=== PATIENT | male | born 1990 | race Two or more races ===

== ENCOUNTER 2020-12-07 11:53 | Emergency (ER) | payer OTHER ==
[~2020-12-07] VITALS: Ht 170.2 cm; Wt 88.2 kg
--- NOTE | 2020-12-07 12:26 | NUR ---
PT STATES HIS CP STARTED YESTERDAY. MAX PAIN 12/25. PAIN WORSENS WHEN LEFT CHEAST IS TOUCHED. PT STATES A URGENT SENT HIM HERE.
[2020-12-07 12:58] LABS: BASOPHILS % (AUTO) 0 % (0-1); EOSINOPHILS % (AUTO) 0 % (1-7); LYMPHOCYTES % (AUTO) 20 % (22-44); MEAN CORPUSCULAR HGB CONC 34.5 g/dL (33.2-36.2); MONOCYTES % (AUTO) 6 % (2-9); NEUTROPHILS % (AUTO) 74 % (42-75); PLATELET COUNT 267 x10^3/uL (130-400); RED BLOOD COUNT 4.85 x10^6/uL (4.38-5.82); RED CELL DISTRIBUTION WIDTH 12.9 % (9.4-14.8)
[2020-12-07 12:59] LABS: MD NO
[2020-12-07 13:08] LABS: ALBUMIN 4.8 g/dL (3.4-5.0); ANION GAP 8 mmol/L (5-15); CALCIUM 9.2 mg/dL (8.5-10.1); CHLORIDE 110 mmol/L (98-107)
[2020-12-07 13:13] VITALS: BP 131/98
--- NOTE | 2020-12-07 13:13 | NUR ---
PT IN BED. TELE SR, VSS
[2020-12-07 13:14] LABS: ALANINE AMINOTRANSFERASE 43 U/L (12-78); ALKALINE PHOSPHATASE 56 U/L (45-117); BILIRUBIN,TOTAL 0.7 mg/dL (0.2-1.0); CREATININE 1.09 mg/dL (0.7-1.3); TROPONIN I < 0.015 ng/mL (0.000-0.045)
[2020-12-07] MEDS ORDERED: KETOROLAC 30 MG/1 ML IM ONE (14:00)
== END 2020-12-07 13:28 ==
LOC: ED 13:27
DX: R07.89 Other chest pain (principal); R42 Dizziness and giddiness
CPT/HCPCS: 36415; 71045; 80053; 84484; 85025; 93005; 99285